=== PATIENT | male | born 1930 | race Caucasian/White ===

== ENCOUNTER 2019-03-04 14:00 | Observation (INO) | payer MEDICARE ==
[2019-03-04] MEDS ORDERED: Aspirin Chewable 81 MG TAB ONE (16:26)
[2019-03-04] MEDS ORDERED: Dextrose 50% Abboject 50 ML SYRINGE IVP PRN (18:05)
[2019-03-04] MEDS ORDERED: Dextrose 5% in Water 1,000 ML IV PRN ×2 (18:05→18:09)
[2019-03-04] MEDS ORDERED: Ondansetron PF 4 MG/2 ML Vial IVP PRN (18:07)
[2019-03-04] MEDS ORDERED: Ondansetron ODT 4 MG TAB PO PRN (18:07)
[2019-03-04] MEDS ORDERED: Senokot S 8.6-50 MG TAB PO PRN (18:07)
[2019-03-04] MEDS ORDERED: Acetaminophen 325 MG TAB PO PRN (18:07)
[2019-03-04] MEDS ORDERED: Calcium Carbonate 500 MG ChewTAB PO PRN (18:07)
--- NOTE | 2019-03-04 18:30 | HP ---
PRIMARY CARE PHYSICIAN: Conrado Ansari MD PRIMARY DRIER OPERATOR HELPER: Dr. Martinez. CHIEF COMPLAINT: Blurring of vision. HISTORY OF PRESENT ILLNESS: The patient is an 88-year-old male with right eye blindness, chronic atrial fibrillation, coronary artery disease status post stent, hypertension, and hyperlipidemia, presented to the emergency room with above symptoms. Two weeks ago, the patient presented to the emergency room with similar symptoms. His symptoms were transient at that time. He was subsequently discharged to home. He was evaluated by Cardiology. He did not have any recurrence of the symptoms until yesterday. Yesterday, he had blurriness of vision which was transient on and off; however, since this morning 7 a.m., his symptoms have been constant. He denies any other focal neurologic deficit. He feels generally weak. He was evaluated at [facility] and was transferred to this facility for hospital admission. No chest pain or palpitations reported. The patient has been lightheaded and dizzy on and off recently. PAST MEDICAL HISTORY: 1. Hypertension. 2. Hyperlipidemia. 3. Coronary artery disease, status post stent. 4. Right eye blindness. 5. Chronic atrial fibrillation, on anticoagulation. 6. Peripheral vascular disease. 7. Diabetes mellitus, type 2 with diabetic neuropathy. 8. Hypothyroidism. 9. Degenerative joint disease. 10. History of osteomyelitis. 11. 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 PAST SURGICAL HISTORY: 1. Pacemaker placement. 2. Right eye surgery. 3. Right great toe amputation. 4. Right second toe amputation. 5. Left second and third toe amputations. 6. Tonsillectomy. ALLERGIES: NO KNOWN DRUG ALLERGIES. CURRENT HOME MEDICATIONS: 1. Toprol-XL 25 mg daily. 2. Potassium chloride 15 mEq daily. 3. Anoro Ellipta one puff daily. 4. Olmesartan 20 mg daily. 5. Glipizide 10 mg twice a day. 6. Levothyroxine 100 mcg daily. 7. Januvia 100 mg daily. 8. Gabapentin 600 mg b.i.d. 9. N-acetylcysteine 600 mg daily. 10. Vitamin D2, 50,000 units as directed. 11. Clobetasol cream as directed. 12. Lasix 20 mg b.i.d. 13. Warfarin 5 mg daily except for 7.5 mg on Sunday, , and Sunday. SOCIAL HISTORY: The patient currently lives at home with his family. He is full code, makes his own decision with the help of his family. He drinks alcohol socially. He quit smoking many years ago. FAMILY HISTORY: Negative for premature coronary artery disease. REVIEW OF SYSTEMS: All other review of systems reviewed and were found negative. PHYSICAL EXAMINATION: VITAL SIGNS: Temperature 98.2, respirations of 16, pulse of 72, blood pressure on ER arrival was 203/101, and O2 saturation 97% on room air. GENERAL: An 88-year-old male in no apparent distress. HEENT: Head, atraumatic and normocephalic. Sclerae anicteric. Moist mucous membranes. No oral lesion. NECK: Supple. No JVD. No carotid bruit. LUNGS: Clear to auscultation bilaterally. No wheezing, rales, or rhonchi. HEART: S1, S2 present. Irregularly irregular. No rubs or gallops. ABDOMEN: Soft, nontender. Bowel sounds present. EXTREMITIES: No edema or calf tenderness. NEUROLOGIC: Grossly nonfocal. Moves all 4 extremities. He continues to have blurriness of vision. Limited ophthalmological examination was negative for papillary edema. Sensation to touch was normal bilaterally. PSYCHIATRY: Alert, awake, and oriented x3. SKIN: Warm and dry. LYMPH NODES: No palpable lymph nodes in the neck. PERIPHERAL VASCULAR: Radial pulses palpable bilaterally. MUSCULOSKELETAL: No joint swelling tenderness. LABORATORY FINDINGS: EKG by my review showed paced rhythm with underlying atrial fibrillation. Chemistry from [place] showed sodium 135, potassium 4.1, chloride 97, bicarb 26, BUN of 29, and creatinine 1.2. Troponin was 0.014. WBC 8.1 with hemoglobin 13.6, hematocrit 40.4, and platelets 176. Urinalysis was negative for wbc, bacteria. IMPRESSION: 1. Lightheadedness, dizziness along with left eye visual blurring. His symptoms are concerning for acute cerebrovascular accident. 2. Chronic atrial fibrillation, on anticoagulation. INR slightly subtherapeutic. 3. History of cerebrovascular accident. 4. Hypertension. 5. Hyperlipidemia. 6. Coronary artery disease, status post myocardial infarction and stent placement. 7. Chronic kidney disease, stage 3. 8. Mild chronic anemia. 9. Right eye blindness. 10. Hypertension. 11. Hyperlipidemia. 12. Peripheral vascular disease. 13. Diabetes with diabetic neuropathy. PLAN: The patient will be monitored in the stroke unit. Anticoagulation will be resumed. We will continue low-dose aspirin. We will consult Neurology, Dr. Gilliam as well as Ophthalmology, Dr. Khan. We will also discuss with Dr. Martinez who is the patient's primary rag production worker. His pacemaker will be interrogated. His home medication will be restarted. We will recheck PT/INR in a.m. MRI cannot be done due to pacemaker. Plan of care was discussed with the patient in detail. He stated understanding. Job ID: [id number] MTDD
[2019-03-04] MEDS ORDERED: Warfarin Sodium 5 MG TAB PO SCH (19:30)
[2019-03-04 20:13] VITALS: BMI 29.2
[2019-03-04] MEDS: Gabapentin 300 MG CAP PO SCH (20:53)
[2019-03-04] MEDS: Atorvastatin Calcium 20 MG TAB PO SCH (20:53)
[2019-03-04] MEDS: Insulin Regular 300 UNITS/3 ML VIAL SC PRN (20:53)
[2019-03-05 05:07] LABS: INR-International Normal Ratio 2.1; Prothrombin Time 23.2 SEC (12.0-14.7)
[2019-03-05 05:24] LABS: Cardiac Risk 2.2 (Less than 4.5)
[2019-03-05] MEDS: Levothyroxine Sodium 100 MCG TAB PO SCH (06:11)
[2019-03-05] MEDS: glipiZIDE 10 MG TAB PO SCH ×2 (08:57→17:40)
[2019-03-05] MEDS: Gabapentin 300 MG CAP PO SCH ×2 (08:58→21:09)
[2019-03-05] MEDS: Aspirin 81 mg Enteric Coated Tablet PO SCH (08:59)
[2019-03-05] MEDS: Losartan 25 MG TAB PO SCH (08:59)
[2019-03-05] MEDS ORDERED: Acetylcysteine 10% 100 MG/ML 30 ml Vial PO SCH (09:00)
--- NOTE | 2019-03-05 10:58 | ULT ---
BILATERAL CAROTID DUPLEX ULTRASOUND: HISTORY: TIA TECHNIQUE: Grayscale, color-flow and spectral Doppler ultrasound imaging of the extracranial carotid artery syst ems was performed bilaterally. FINDINGS: There is plaque formation, right greater than left. The peak systolic velocity in the right ICA measures 56 cm/s with an end-diastolic velocity of 9 cm/s and a systolic ratio of 0.87. The peak systolic velocity in the left ICA measures 52 cm/s with an end-diastolic velocity of 70 cm/s and a systolic ratio of 0.58. Flow in both vertebral arteries remains antegrade. IMPRESSION: No evidence of hemodynamically significant stenosis.
[2019-03-05 11:20] LABS: Anion Gap 14 mmol/L (10-20); BUN (Urea Nitrogen) 22 mg/dL (8.4-25.7); Calc. Creatinine Clearance 69 mL/min (70-130); Calcium 9.5 mg/dL (7.8-10.44); Carbon Dioxide 25 mmol/L (23-31); Chloride 103 mmol/L (98-107); Estimated GFR-MDRD 75; Glucose 112 mg/dL (83-110); Potassium 4.1 mmol/L (3.5-5.1); Sodium 138 mmol/L (136-145)
[2019-03-05] MEDS: Sodium Chloride 0.9% 1,000 ML IV SCH ×2 (11:21→23:39)
[2019-03-05] MEDS: Insulin Regular 300 UNITS/3 ML VIAL SC PRN ×3 (11:26→22:09)
--- NOTE | 2019-03-05 14:08 | CON ---
DATE OF CONSULTATION: PRIMARY CARE DOCTOR: Conrado Ansari MD PRIMARY TV TECHNICIAN: Neelam Martinez MD REASON FOR CARDIOLOGY CONSULT: CVA. HISTORY OF PRESENT ILLNESS: Mr. Bazzi is an 88-year-old very pleasant male with a significant history of TIA, hypertension, chronic atrial fibrillation, pacemaker placement, and diabetes. The patient presented to the Emergency Department for blurry vision and dizziness for 2 days. Beginning of the February this month, the patient presented to the Emergency Department in [place] for dizziness and lightheadedness. Prior to the event, the patient had a pacemaker interrogation at Dr. Martinez office, which shows normal function. The patient presented to Dr. Michelle batista again on February 25, when the patient's pacemaker was interrogated, which showed normal with chronic atrial fibrillation with no other arrhythmia or pauses. At that time, the patient continued to complain of dizziness; however, he would describe his dizziness as like a spinning like dizziness and he has been checking his blood pressure at home, which has shown 130s to 140s at home. His blood sugars have been 170s in home at that time. He was doing later to be stable till two days ago, he started having dizziness and blurry vision, but at night, he was doing okay. However, yesterday, he started having dizziness, blurry vision with fuzzy/cloudy like vision sight with darkness. 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 The patient denied any chest pain, shortness of breath, or any other cardiac complaints during the episode. Due to that reason, the patient decided to present to the Emergency Department for further evaluation and treatment. The patient had a history of TIA in the past. His blood pressure at home in the last 2 days was elevated per the patient, which is around 160s to 180s/70s to 80s. He continued complaining of weakness in the legs for couple weeks. He fell last Sunday when he bent over to pick it up some object. He felt some weakness in his knee and he lost balance and he fell. He did not hit anywhere in his body. He reports that he is eating well and has enough plenty of fluids at home. During the initial Cardiology consult assessment, the patient denied any dizziness, lightheadedness, or blurry vision. At this moment, no chest pain, heaviness, tightness, shortness of breath, or any other cardiac complaints. The patient had echocardiogram in August 2017 with EF 60% to 65% percent, moderate LAD, LAE, and PIKNY. Hypokinesis of inferior wall, mildly enlarged RV, mild MAC, mildly enlarged aortic roots, moderate tricuspid regurgitation, mild mitral valve regurgitation, trace pulmonary valve insufficiency, and chronic atrial fibrillation. The patient had a stress test done in October 2016 with moderate part show a reversible deficit consistent with moderate scar and ischemia in ICA versus circumflex territory. Minimal reversible deficits suggestive of minimal ischemia in the LAD. The patient had a bilateral lower extremity arterial duplex in 2015, shown evidence of significant stenosis in the left distal common femoral and proximal superficial femoral artery and the patient has an AFRO done in February 2018 showing from 20% to 60% stenosis in the right lower extremities and 20% to 60% in the left lower extremities. A carotid Doppler in September 2017 shows no significant stenosis in the bilateral ICAs. The patient has a [employer] pacemaker, which was placed in December 2009. PAST MEDICAL HISTORY: Hypertension, hyperlipidemia, coronary artery disease, stent placement in RCA in 1998, right eye blindness, and chronic atrial fibrillation, the patient is on Coumadin. Diabetes type 2, hypothyroidism, degenerative joint disease, history of osteomyelitis, and history of TIA in 2000 without no residual deficits. PAST SURGICAL HISTORY: [employer] pacemaker implant in 2009 and pacemaker battery change out in 2015, right eye surgery, cardiac stent placement in RCA in 1998, cardioversion in August 2017, AFRO in June 2017, prostate surgery in 2006, right foot surgery in 2006, and pancreatic surgery in 2000 with transurethral resection of prostate in 2006. FAMILY HISTORY: The patient's mother , has a medical history of myocardial infarction and CVA. The patient's father had a history of myocardial infarction. The patient's sister had a history of CVA. SOCIAL HISTORY: The patient lives with his family. He is really active. He use a walker, but he is active at home. He is an ex-smoker, quit about 50 years ago. He drinks alcohol socially. ALLERGIES: HE IS ALLERGIC TO IODINE. HOME MEDICATIONS: 1. Potassium chloride 10 mEq once a day. 2. Lasix 20 mg once a day. 3. Gabapentin 300 mg once a day. 4. Vitamin D 50,000 units every month. 5. Pravastatin 80 mg once a day. 6. Glipizide 10 mg twice a day. 7. Januvia 100 mg once a day. 8. Levothyroxine 100 mcg once a day. 9. Aspirin 81 mg once a day. 10. Gabapentin 600 mg twice a day. 11. Olmesartan 20 mg once a day. 12. Acetylcysteine 600 mg once a day. 13. Anoro Ellipta one inhale once a day. 14. Coumadin 5 mg once a day, which is managed by primary care doctor. REVIEW OF SYSTEMS: A 12-point review of systems negative unless otherwise mentioned in HPI. PHYSICAL EXAMINATION: VITAL SIGNS: Blood pressure 147/68, pulse is 89 and atrial fibrillation, temperature 98.0, respiratory rate 18, and O2 saturation 93% with room air. GENERAL: The patient is alert and oriented x4, no acute distress. HEENT: Normocephalic and atraumatic. Eyes, right eye has blindness, but left eye, extraocular muscle movement intact. He wears glasses. ENT and mouth, oral mucosa moist without lesion. NECK: Supple. Normal range of motion. No JVD. RESPIRATORY: Clear to auscultate bilaterally. No wheezing, rales, or rhonchi noted. CARDIOVASCULAR: Irregularly irregular. No significant murmur, hives, or thrill noted. 2+ pulses in the bilateral upper and lower extremities. No edema in lower extremities. Carotid pulses are present without bruit or thrill. ABDOMEN: Soft and nontender. No mass to palpitate. Bowel sounds are present. MUSCULOSKELETAL: The patient denies claudication. The patient is able to move all extremities without no difficulty in the bed, but he use a walker. SKIN: Warm and dry. No lesion, rash, or erythema noted. PSYCHIATRIC: The patient's mood is appropriate. NEUROLOGIC: The patient is alert and oriented x4. Nonfocal. LABORATORY DATA: Labs on February 18, 2019; WBC 6.2, hemoglobin 13.3, hematocrit 41.4, and platelet 157. INR on March 05, 2019, 2.1. Chemistry on February 18, 2019; sodium 136, potassium 4.6, BUN 29, creatinine 1.37, glucose 256, magnesium 1.8, GGT 200, AST 40, and ALT 45. . Creatine kinase at 291, troponin is negative on February 18, and BNP 389 on February 18. Total cholesterol 113, triglycerides 76, HDL 51, and LDL 47. T3 of 2.24 in May 2017. Carotid Doppler was done today and the result is pending. Telemetry monitoring has shown chronic atrial fibrillation with occasional V-pacing. There are no pauses or any other arrhythmia noted. ASSESSMENT AND PLAN: 1. Blurry vision, dizziness, and lightheadedness. The patient's condition is stable at this moment. Unfortunately, the patient cannot have MRI due to his pacemaker type. The neurologist consult was ordered. The patient has been on Coumadin, which is managed by primary care doctor and the dosage was just adjusted by the primary care doctor on February 21 due to the INR was 1.7 at that time. 2. Chronic atrial fibrillation. The patient has been on Coumadin, which is managed by primary care doctor. The patient's heart rate is stable at this moment with current medication. 3. Pacemaker placement. The patient's pacemaker will be interrogated today. 4. Coronary artery disease with history of stent placement in right coronary artery in 1998. The patient's condition is stable at this moment with current medication. 5. Hypertension. The patient's blood pressure is slightly elevated. We would like to adjust medications as appropriate. 6. Hypothyroidism, which is managed by primary care doctor. 7. Chronic obstructive pulmonary disease. The patient's condition is stable at room air. 8. Diabetes type 2, which is managed by primary care doctor. 9. Weakness in the lower extremities. The patient's AFRO in the 2018 shows 20% to 60% stenosis in the bilateral lower extremities. There is no indication for any further aggressive treatment. We would like to continue medical treatment for the patient's condition. Thank you very much for Cardiology Service to participate in the care of this patient. We will follow along the patient's care team and make further recommendations as appropriate. Job ID: [id number]
[2019-03-05] MEDS ORDERED: Prevnar 13-Val Conj/PF 0.5 ML SYRINGE IM ONE (14:30)
[2019-03-05] MEDS ORDERED: Warfarin Sodium 5 MG TAB PO SCH (17:00)
--- NOTE | 2019-03-05 19:40 | PDOC.HOSPP ---
- Subjective Encounter Date: 03/05/19 Encounter Time: 09:30 Subjective: Patient seen and examined for ?CVA. No significant improvement in his symptoms. No new focal deficits. No other complaints. No overnight events - Objective Vital Signs & Weight: Vital Signs (12 hours) Temp Pulse Pulse Pulse Pulse Resp BP 03/05/19 18:06 91 12 03/05/19 15:40 98.2 F 88 16 03/05/19 12:39 70 14 03/05/19 11:00 97.8 F 75 18 03/05/19 10:17 84 149/73 H 03/05/19 09:00 89 85 104 H 137/65 BP BP BP Pulse Ox 03/05/19 18:06 97 03/05/19 15:40 130/59 L 96 03/05/19 12:39 03/05/19 11:00 148/67 H 93 L 03/05/19 10:17 03/05/19 09:00 147/68 H 149/83 H Weight Weight 192 lb I&O: 03/04/19 03/05/19 03/06/19 06:59 06:59 06:59 Intake Total 310 640 Output Total 400 625 Balance -90 15 Result Diagrams: 03/05/19 04:12 Additional Labs: Accuchecks 03/05/19 03/05/19 03/05/19 16:53 10:47 05:55 POC Glucose 259 H 313 H 151 H 03/04/19 20:33 POC Glucose 261 H Radiology Reviewed by me: No (Carotid - neg) EKG Reviewed by me: Yes (Tele Afib/Paced) Hospitalist ROS - Review of Systems Cardiovascular: denies: chest pain, palpitations, orthopnea, paroxysmal noc. dyspnea, edema, light headedness, other Gastrointestinal: denies: nausea, vomiting, abdominal pain, diarrhea, constipation, melena, hematochezia, other - Medication Medications: Active Medications Generic Name Dose Route Start Last Admin Trade Name Freq PRN Reason Stop Dose Admin Albuterol/Ipratropium 3 ml 03/05/19 01:00 03/05/19 18:06 Duoneb NEB 3 ml [id number] GISSELL Administration Aspirin 81 mg 03/05/19 09:00 03/05/19 08:59 Ecotrin PO 81 mg DAILY GISSELL Administration Atorvastatin Calcium 20 mg 03/04/19 21:00 03/04/19 20:53 Lipitor PO 20 mg HS GISSELL Administration Gabapentin 600 mg 03/04/19 21:00 03/05/19 08:58 Neurontin PO 600 mg BID GISSELL Administration Glipizide 10 mg 03/05/19 08:00 03/05/19 17:40 Glucotrol PO 10 mg BID-WM GISSELL Administration Sodium Chloride 1,000 mls @ 70 mls/hr 03/05/19 11:00 03/05/19 11:21 Normal Saline 0.9% IV 1,000 mls .[id number] GISSELL Administration Insulin Human Regular 0 units 03/04/19 18:00 03/05/19 17:44 Humulin R SC 6 unit .MODERATE SLIDING SC PRN Administration Moderate Correctional Scale Insulin Human Regular 0 units 03/04/19 18:09 03/04/19 20:53 Humulin R SC 3 unit .BEDTIME SLIDING SC PRN Administration Bedtime Correctional Scale Levothyroxine Sodium 100 mcg 03/05/19 06:00 03/05/19 06:11 Synthroid PO 100 mcg 0600 GISSELL Administration Losartan Potassium 50 mg 03/05/19 09:00 03/05/19 08:59 Cozaar PO 50 mg DAILY GISSELL Administration Warfarin Sodium 5 mg 03/05/19 17:00 03/05/19 17:41 Coumadin PO 5 mg [id number] GISSELL Administration - Exam General Appearance: NAD Neck: supple, no JVD Heart: RRR, no gallops Respiratory: CTAB, no ronchi Gastrointestinal: non-tender, normal bowel sounds Extremities: no edema Neurological: no new deficit Psychiatric: normal affect, A&O x 3 Hosp A/P - Plan 1. Lightheadedness, dizziness along with left eye visual blurring. ?Acute CVA 2. Chronic atrial fibrillation, on anticoagulation. INR therapeutic. 3. History of cerebrovascular accident. 4. Hypertension. 5. Hyperlipidemia. 6. CAD s/p GA and stent placement. 7. Chronic kidney disease, stage 3. 8. Mild chronic anemia. 9. Right eye blindness. 10. Hypertension. 11. Hyperlipidemia. 12. Peripheral vascular disease. 13. Diabetes with diabetic neuropathy. PLAN: Cont Warfarin/ASA/Statins Await Neuro/Ophthal and Cardio input Pacemaker check Cont Sliding scale PT/OT AM labs Cont other meds CT angio head - needs iodine prep No MRI due to pacemaker
[2019-03-05] MEDS: Atorvastatin Calcium 20 MG TAB PO SCH (21:09)
[2019-03-05] MEDS: predniSONE 50 MG TAB PO SCH (21:09)
--- NOTE | 2019-03-05 23:30 | CON ---
DATE OF CONSULTATION: 03/05/2019 INDICATION FOR CONSULTATION: An 88-year-old patient who has history of pacemaker insertion, chronic atrial fibrillation, who has presented with another TIA. He has had history of TIAs in the past. He describes the vision getting very dark, but it kind of comes and goes. He has actually had some episodes today. He is waiting for the ota to come and visit with him to evaluate the eye. He has blindness already in the right eye, but otherwise he denies any chest pain or shortness of breath and has been on anticoagulation in the form of Coumadin. His INR recently was 1.7, is now back up to 2.1. Otherwise, I do not see any indication that he has had any other etiology for the TIAs. A CT scan does not show any acute changes. At this time, I have reviewed the records by my nurse practitioner and please review that for the past medical history, social history, family history, review of systems, medications, and allergies. PHYSICAL EXAMINATION: VITAL SIGNS: Stable. CHEST: Clear to auscultation. CARDIOVASCULAR: Reveals an irregularly irregular rhythm. He has a well-healed surgical incision over the left infraclavicular area after pacemaker insertion sometime back. ABDOMEN: Soft and nontender, some obesity. Otherwise, no significant abnormalities. MUSCULOSKELETAL: There is some mild ankle edema, otherwise no significant abnormalities are noted. Pulses are present. NEUROLOGIC: The patient appears to be grossly intact. For the remainder of the laboratory data and EKG, please refer the notes already dictated. I did review his EKGs which show atrial fibrillation, but no acute changes were noted to indicate any ischemia or other abnormalities. I will review his echocardiogram. His most recent echocardiogram in August 2017 showed a normal ejection fraction with dilated left atrium, right atrium, and also mildly enlarged right ventricle. He also had some mild mitral annular calcifications. There were no other gross abnormalities noted that would account for a TIA. No evidence of atrial septal defect or patent foramen ovale. At this time, we will await further evaluation, but I will review the new echocardiogram. At this time, he remains stable, except he continues to have some episodes of visual changes according to the patient. His pacemaker was again evaluated today and it shows that 43% of the time he remains in atrial fibrillation and the last episode of atrial fibrillation has lasted more than 15 days and appears to be in chronic atrial fibrillation. Otherwise, the pacemaker function appears to be normal. Job ID: [id number] [facility]
[2019-03-06] MEDS: predniSONE 50 MG TAB PO SCH ×2 (03:58→08:36)
[2019-03-06 04:56] LABS: INR-International Normal Ratio 2.1; Prothrombin Time 23.5 SEC (12.0-14.7)
[2019-03-06 05:09] LABS: Anion Gap 14 mmol/L (10-20); BUN (Urea Nitrogen) 23 mg/dL (8.4-25.7); Calc. Creatinine Clearance 56 mL/min (70-130); Calcium 9.1 mg/dL (7.8-10.44); Carbon Dioxide 23 mmol/L (23-31); Chloride 101 mmol/L (98-107); Estimated GFR-MDRD 60; Glucose 293 mg/dL (83-110); Potassium 4.6 mmol/L (3.5-5.1); Sodium 133 mmol/L (136-145)
[2019-03-06] MEDS: Levothyroxine Sodium 100 MCG TAB PO SCH (06:45)
[2019-03-06] MEDS: Insulin Regular 300 UNITS/3 ML VIAL SC PRN ×3 (06:46→17:07)
[2019-03-06] MEDS ORDERED: diphenhydrAMINE 50 MG CAP PO SCH (08:00)
[2019-03-06] MEDS: Aspirin 81 mg Enteric Coated Tablet PO SCH (09:05)
[2019-03-06] MEDS: Losartan 25 MG TAB PO SCH (09:05)
[2019-03-06] MEDS: glipiZIDE 10 MG TAB PO SCH ×2 (09:05→17:07)
[2019-03-06] MEDS: Gabapentin 300 MG CAP PO SCH (09:05)
--- NOTE | 2019-03-06 11:00 | CT ---
CT ANGIOGRAM HEAD: 03/06/2019 HISTORY: Left eye blurred vision. COMPARISON: None. TECHNIQUE: Axial CT imaging obtained at 5 mm intervals from the vertex through the skull base. Thin axial CT bela ging at 1.25 mm intervals obtained from the vertex through the skull base with IV contrast using CT a ngiogram protocol with coronal and sagittal 3D reformatted imaging. FINDINGS: The imaged paranasal sinuses/mastoid air cells appear well aerated. There is no displaced calvarial f racture. There is atherosclerotic calcification of the cavernous carotid arteries. The noncontrast enhanced imaging demonstrates moderate diffuse cerebral volume loss. There is periven tricular and deep white matter hypodensity, evidence of small vessel disease. No intracranial hemorrh age, midline shift, mass effect or ventricular enlargement. The post contrast imaging demonstrates patency of bilateral distal vertebral arteries. The basilar ar clark is patent. Branches of the basilar artery are patent as well. There is a hypoplastic P1 segment on the right with a patent right-sided posterior communicating artery. No saccular aneurysm, high gra de stenosis or vascular occlusion is evident involving the posterior circulation on either side. The imaged extracranial ICA is patent bilaterally. There is atherosclerotic calcification of the cave rnous carotid arteries bilaterally. The A1 segment is patent bilaterally. The distal PURA branches lady ear patent. The M1 segment is patent bilaterally. The MCA bifurcation and the distal MCA branches appear grossly unremarkable. No saccular aneurysm, high grade stenosis or central arterial occlusion is seen involvi ng the anterior circulation on either side. The globe on the right is partially calcified and small, suggesting prior ocular injury or surgery. There is a prominent calcification in the region of the le ft ocular lens. 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 CT angiogram demonstrates no eviden ce for a saccular aneurysm, high grade stenosis or central vascular occlusion. POS: [facility]
[2019-03-06] MEDS ORDERED: Iopamidol 370 76% 100 ML VIAL ONE (11:29)
--- NOTE | 2019-03-06 11:57 | CON ---
DATE OF CONSULTATION: 03/05/2019 TIME SEEN: 07:30 p.m. CHIEF COMPLAINT: Episodes of dizziness, weakness, and blurred vision. HISTORY OF PRESENT ILLNESS: The patient is an 88-year-old man with a past history of multiple TIAs, atrial fibrillation, pacemaker implantation, hypertension, and diabetes mellitus, type 2. About 2 weeks previously, he had a number of episodes of dizziness (spinning sensation) and weakness and blurred vision. He has had at least one perhaps 2 visits with his posting machine operator for pacemaker evaluation during that 2 weeks without abnormality found. About 2 days prior to the current admission, he again had several of these episodes of dizziness, weakness, and blurred vision, and he came to the emergency room, and was admitted. The interval between these episodes is essentially normal, with his vision being in its usual level. 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 Recently, he saw an clinical academic allergist in [employer], who said that he had a scar in his left eye, and he now has an appointment on 08 May with a retina specialist. He had had cataract surgery on both eyes in the distant past. 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 Vision is of course no light perception with the right eye and J-10 at near with the left eye, approximately equivalent to 20/100. Intra-ocular pressure in the left eye was 21 mmHg and 14 mmHg with a Yung-Pen. The left pupil and motility are normal. The left eye was dilated. On fundus examination, the peripheral retina is flat without hemorrhages or ischemia or breaks. 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 ASSESSMENT: The left eye has no acute changes that might be causing episodic blurring. I believe that whatever causing these episodes is more general or central. He has already been evaluated by Cardiology during this admission, and pacemaker shows no malfunction, and he has persistent atrial fibrillation. His blood pressures and blood sugars when measured by him at home have been in a recently normal range. CT of the head and carotid ultrasound are essentially normal. About all that is left might be an Ear, Nose, Throat consultation. Job ID: [id number]
--- NOTE | 2019-03-06 13:56 | PDOC.CPN ---
- Subjective Date: 03/06/19 Time: 14:00 Interval history: The pt seen and examined. No overnight events. No cardiac complaints. - Objective Allergies/Adverse Reactions: Allergies Allergy/AdvReac Type Severity Reaction Status Date / Time iodine Allergy Verified 03/04/19 20:18 Visit Medications: Current Medications Acetaminophen (Tylenol) 650 mg PO Q4H PRN PRN Reason: Headache/Fever/Mild Pain (1-3) Last Admin: 03/05/19 23:36 Dose: 650 mg Albuterol/Ipratropium (Duoneb) 3 ml NEB [id number] [facility] Last Admin: 03/06/19 13:41 Dose: 3 ml Albuterol/Ipratropium (Duoneb) 3 ml NEB Q4H PRN PRN Reason: SOB &/or Wheezing Alogliptin Benzoate (Alogliptin) 25 mg PO 1700 GISSELL Aspirin (Ecotrin) 81 mg PO DAILY [facility] Last Admin: 03/06/19 09:05 Dose: 81 mg Atorvastatin Calcium (Lipitor) 20 mg PO HS [facility] Last Admin: 03/05/19 21:09 Dose: 20 mg Calcium Carbonate (Tums) 1,000 mg PO Q4H PRN PRN Reason: Heartburn or Indigestion Dextrose/Water (Dextrose 50%) 25 gm IVP PRN PRN PRN Reason: HYPOGLYCEMIA PROTOCOL Gabapentin (Neurontin) 600 mg PO BID [facility] Last Admin: 03/06/19 09:05 Dose: 600 mg Glipizide (Glucotrol) 10 mg PO BID-WM [facility] Last Admin: 03/06/19 09:05 Dose: 10 mg Glucagon (Glucagon) 1 mg IM PRN PRN PRN Reason: HYPOGLYCEMIA PROTOCOL Dextrose/Water (D5w) 1,000 mls @ 0 mls/hr IV .Q0M PRN PRN Reason: Hypoglycemia Sodium Chloride (Normal Saline 0.9%) 1,000 mls @ 70 mls/hr IV .[id number] [facility] Last Admin: 03/05/19 23:39 Dose: 1,000 mls Insulin Human Regular (Humulin R) 0 units SC .MODERATE SLIDING SC PRN PRN Reason: Moderate Correctional Scale Last Admin: 03/06/19 12:49 Dose: 6 unit Insulin Human Regular (Humulin R) 0 units SC .BEDTIME SLIDING SC PRN PRN Reason: Bedtime Correctional Scale Last Admin: 03/05/19 22:09 Dose: 3 unit Levothyroxine Sodium (Synthroid) 100 mcg PO 0600 [facility] Last Admin: 03/06/19 06:45 Dose: 100 mcg Losartan Potassium (Cozaar) 50 mg PO DAILY [facility] Last Admin: 03/06/19 09:05 Dose: 50 mg Meclizine HCl (Antivert) 25 mg PO Q8HR [facility] Miscellaneous Medication (Pharmacy To Dose) 1 each PO .WARFARIN [facility] Ondansetron HCl (Zofran Odt) 4 mg PO Q6H PRN PRN Reason: Nausea/Vomiting Ondansetron HCl (Zofran) 4 mg IVP Q6H PRN PRN Reason: Nausea/Vomiting Senna/Docusate Sodium (Senokot S) 2 tab PO BID PRN PRN Reason: Constipation Sodium Chloride (Flush - Normal Saline) 10 ml IVF PRN PRN PRN Reason: Saline Flush Warfarin Sodium (Coumadin) 5 mg PO SuTuWeFr [facility] Last Admin: 03/05/19 17:41 Dose: 5 mg Warfarin Sodium (Coumadin) 7.5 mg PO [facility] Vital Signs & Weight: Vital Signs Temp Pulse Resp BP Pulse Ox 03/06/19 13:41 88 16 96 03/06/19 12:00 98.3 F 109 H 12 128/71 91 L 03/06/19 08:36 82 16 96 03/06/19 07:44 97.6 F 90 16 144/75 H 93 L 03/06/19 03:32 97.7 F 83 20 128/70 94 L Weight 192 lb 9.6 oz - Physical Exam General: alert & oriented x3 HEENT: mucus membranes moist Neck: supple neck Cardiac: regular rate and rhythm, S1/S2 Lungs: clear to auscultation Skin: clear Musculoskeletal: decreased range of motion - Labs Result Diagrams: 03/06/19 04:19 - Telemetry Supraventricular conduction: atrial fibrillation - Assessment/Plan Assessment/Plan: 1. Lightheadedness, dizziness along with left eye visual blurring 2/2 TIA? - Normal PM interrogation; Echo without PSD or PFO; Eye exam was normal by Dr Lianres, Revenue Stamp Clerk 2. Chronic Afib - wll controlled HR; On Coumadin. 3. CAD with Hx of stent in RCA 1998 - asymptomatic; On ASA, Statin, but no bblocker due to hx of COPD 4. HTN - stable 5. HLD - on statin 6. COPD - stable with RA 7. CKD stage 3 - stable 8. Hx of PM placement - latest PM interrogation showed normal 9. Hypothyroidism 10. DM type 2 - 11. weakness in BLE - MAR reviewed Echo in 02/2019 with EF 50-55%, mod dilated LA, mod ERA, mild MR, mod TR, and no ASD or PFO
[2019-03-06] MEDS ORDERED: Meclizine HCl 25 MG TAB PO SCH (14:00)
[2019-03-06] MEDS: Sodium Chloride 0.9% 1,000 ML IV SCH (14:03)
[2019-03-06 15:44] VITALS: BP 135/70; TEMP 97.7
[2019-03-06] MEDS ORDERED: Alogliptin 25 MG TAB PO SCH (17:00)
[2019-03-06] MEDS ORDERED: Warfarin Sodium 7.5 MG TAB PO SCH (17:00)
[2019-03-06 18:29] LABS: Syphilis Antibody Nonreactive (Nonreactive); Syphilis Antibody Index 0.06 S/CO (<1.00 Non-Reactive)
--- NOTE | 2019-03-06 23:11 | CON ---
DATE OF CONSULTATION: 03/06/2019 CONSULTING PHYSICIAN: Hospitalist Service. IMPRESSION: 1. Subacute vision loss in the left eye over 4 months of uncertain etiology. An optic neuropathy would seem to be the leading possibility. 2. Chronic dizziness for more than 5 years. PLAN: 1. The patient is anticipated transfer to rehab. 2. Check B12 and VDRL to rule out a treatable cause of optic neuropathy. HISTORY OF PRESENT ILLNESS: Mr. Jluis angelo is an 88-year-old gentleman who presented with complaints of vision loss in his only eye on the left. He reports it came on in a subacute fashion over 4 months ago. It is uncertain as to why he decided to come to the hospital at this juncture. 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 He reports that he has also had chronic postural dizziness for several years. He was seen by ENT in the past and cause for his dizziness is never found. He reports that when he is lying down, he is generally comfortable, when he sits up he starts to feel the dizziness. He feels like he is swaying on a boat, is not associated with nausea or vomiting. He has never had any lateralized weakness or numbness. Since admission, he was noted to have an INR of 2.0. His EKG shows a paced rhythm. His cholesterol ratio is 2.2. Carotid ultrasound was clear. CTA of the brain did not show any significant stenosis, only small vessel ischemic changes. His pacemaker is not compatible with MRI. He was seen by Ophthalmology and no intra-ocular abnormalities were identified. PAST MEDICAL HISTORY: Diabetes, hypertension, atrial fibrillation, coronary artery disease, hyperlipidemia. PAST SURGICAL HISTORY: Pacemaker implantation. FAMILY HISTORY: Noncontributory. ALLERGIES: IODINE. SOCIAL HISTORY: No tobacco or alcohol. REVIEW OF SYSTEMS: Ten-system review of systems is otherwise negative. PHYSICAL EXAMINATION: GENERAL: He is a well-nourished elderly man, sitting up in bed, in no distress. VITAL SIGNS: Have been stable. He is afebrile. 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 Left eye moves in a normal fashion with some horizontal nystagmus that extinguishes. His pupil is reactive. His visual acuity is reportedly 20/100. His visual field is full. NECK: Supple. EXTREMITIES: No cyanosis or edema. NEUROLOGIC: He is alert and cooperative. Speech is fluent and clear. Cranial nerves are otherwise intact. Motor exam shows good strength bilaterally without fix or drift. [id number]-zo-[id number] movements are without dysmetria. Sensation is intact to touch. He walked with the use of a walker earlier today. SUMMARY: Elderly man with chronic postural dizziness and subacute vision loss in the left eye. I am going to check a B12 level and VDRL to complete his workup. Otherwise, there does not seem to be any fixable etiology. Job ID: [id number]
--- NOTE | 2019-03-07 06:01 | DIS ---
DATE OF ADMISSION: 03/04/2019 DATE OF DISCHARGE: 03/06/2019 DISCHARGE DIAGNOSES: 1. Lightheadedness and dizziness, felt to be most likely related to benign positional vertigo. 2. Chronic atrial fibrillation, rate controlled. 3. Anticoagulation. 4. Coronary artery disease with history of stenting. 5. Hypertension. 6. Uncontrolled diabetes mellitus. 7. Hyperlipidemia. 8. Chronic obstructive pulmonary disease. 9. Chronic kidney disease, stage 3. 10. History of pacemaker placement and status post normal interrogation. 11. Hypothyroidism. 12. Weakness in bilateral lower extremities. CONSULTANTS: Dr. Martinez, Cardiology Service. Dr. Khan, employment appeals examiner. HOSPITAL COURSE: The patient was an 88-year-old male, who was admitted to the hospital with blurring of vision, which was on and off. This was going on along with dizziness and lightheadedness, especially when he was getting up and changing positions. Patient was seen and evaluated at [facility] and he was transferred to our facility for hospital admission. Apparently two weeks ago, the patient presented to the emergency room with similar symptoms and he was evaluated by Cardiology and he did not have any recurrent problems until the time when this admission happened two days ago. While in the emergency room, his hemoglobin was 13.6, white count 8.1, hematocrit 40.4, and platelet count 176. Urinalysis showed normal findings. EKG showed paced rhythm with underlying atrial fibrillation. The patient got admitted to Stroke Unit. He was continued on low-dose aspirin. Patient was seen by neurologist by employment appeals examiner and manufacturing executive. It was not very clear what was causing all his blurred vision. He had normal eye exam according to Dr. Khan, employment appeals examiner, who came and saw him in the hospital. He had normal carotid Doppler study and normal CT of the [place] de[place]-ni' of Berger angiogram, except for some small-vessel disease, but there was no any intracranial hemorrhage or aneurysm or high-grade stenosis or central vascular occlusion. His echocardiogram came back with normal LVEF at 50% to 55% estimated. There was moderate tricuspid regurgitation, but otherwise the changes were minor, so the final thought it was most likely related to benign positional vertigo. The patient was placed on meclizine 25 mg q.8 hours and he is accepted by inpatient rehab for PT because of his weakness and dizziness and the situation, the patient lives alone, does not have much support at home. At the time of discharge, his blood pressure is 135/70, pulse is 106, respirations 20, and O2 saturation is 96% on room air, and temperature is 97.7. He was seen examined and examined before his discharge. DISCHARGE MEDICATIONS: 1. Warfarin 7.5 mg on Mondays, , Saturdays and 5 mg on Sundays, Tuesdays, Wednesdays, and Fridays. 2. Meclizine 25 mg q.8 hours scheduled. 3. Losartan 50 mg daily. 4. Levothyroxine 100 mcg daily. 5. Glipizide 10 mg twice a day. 6. Gabapentin 600 mg twice a day. 7. Calcium carbonate 1000 mg q.4 hours p.r.n. as needed. 8. Lipitor 20 mg at bedtime. 9. Aspirin 81 mg once a day. 10. Alogliptin 25 mg once a day. 11. Albuterol p.r.n. 12. Tylenol p.r.n. The patient is going to be transferred to inpatient rehab and he will be going to get PT and OT. Time spent on this discharge is less than 30 minutes. Job ID: [id number]
== END 2019-03-06 19:45 ==
LOC: ERS 14:00 → 2SE 16:32
PROVIDERS: ADMIT Internal Medicine; ATTEND Internal Medicine
DX: H53.8 Other visual disturbances (principal); R42 Dizziness and giddiness; I48.20 Chronic atrial fibrillation, unspecified; I25.10 Atherosclerotic heart disease of native coronary artery without angina pectoris; I12.9 Hypertensive chronic kidney disease with stage 1 through stage 4 chronic kidney disease, or unspecified chronic kidney disease; N18.3 Chronic kidney disease, stage 3 (moderate); D63.1 Anemia in chronic kidney disease; I10 Essential (primary) hypertension; E78.5 Hyperlipidemia, unspecified; H54.61 Unqualified visual loss, right eye, normal vision left eye; E11.40 Type 2 diabetes mellitus with diabetic neuropathy, unspecified; E03.9 Hypothyroidism, unspecified; M19.90 Unspecified osteoarthritis, unspecified site; J44.9 Chronic obstructive pulmonary disease, unspecified; I73.9 Peripheral vascular disease, unspecified; Z86.73 Personal history of transient ischemic attack (TIA), and cerebral infarction without residual deficits; Z79.84 Long term (current) use of oral hypoglycemic drugs; Z79.01 Long term (current) use of anticoagulants; Z79.899 Other long term (current) drug therapy; Z87.891 Personal history of nicotine dependence; Z95.0 Presence of cardiac pacemaker; Z95.5 Presence of coronary angioplasty implant and graft; Z91.041 Radiographic dye allergy status
CPT/HCPCS: 70496; 80048 ×2; 80061; 82607; 82962 ×3; 85610 ×3; 86780; 90670; 93306; 93880; 94640 ×3; 96360; 96361 ×2; 97116 ×2; 97139 ×5; 97530; 97535; 99285; G0009; G0378 ×3; 36415; 36416; 90471; J1815; J7512; J7620; J8597; Q0163